=== PATIENT | male | born 1950 | race African-American/Black ===

== ENCOUNTER 2022-04-29 14:34 | Inpatient (IN) ==
[2022-04-29] MEDS ORDERED: SODIUM CHLORIDE 0.9% 1,000 ML IV STA (15:34)
[2022-04-29 15:45] LABS: Basophils % 0.6 % (0.0-0.8); Eosinophils % 0.4 % (0.00-10.9); Hematocrit 46.4 VOL% (42.0-52.0); Hemoglobin 14.7 GM/DL (14.0-18.0); Immature Granulocytes % 0.4 %; Immature Granulocytes Absolute 0.03 #; Lymphocytes # 2.6 10*3/uL (1.4-4.0); Lymphocytes % 37.3 % (21.2-54.2); Mean Corpuscular HGB Conc 31.7 GM/DL (32-36); Mean Corpuscular Volume 82.1 FL (87-102); Mean Platelet Volume 11.1 FL (9.6-12.0); Monocytes # 0.4 10*3/uL (0.11-0.8); Monocytes % 5.1 % (1.7-12.7); Neutrophils % 56.2 % (38.7-73.9); Platelet Count 236 T/CUMM (130-400); Red Blood Count 5.65 MC/CUMM (3.8-5.5); White Blood Count 6.9 T/CUMM (4-12)
[2022-04-29 15:53] LABS: PT Patient Result 10.6 SECS (10.1-12.1)
[2022-04-29 16:02] LABS: Albumin 2.9 G/DL (3.4-5.0); Bilirubin,Total 0.9 MG/DL (0.20-1.00); Calcium 9.1 MG/DL (8.5-10.1); Potassium 4.3 MMOL/L (3.5-5.1); Total Protein 6.7 G/DL (6.4-8.2)
[2022-04-29 18:41] LABS: Bilirubin,Urine Large mg/dL (Negative); Blood, Urine Negative (Negative); Glucose,Urine (UA) Negative (Negative); Ketones,Urine 40 mg/dL (Negative); Nitrite,Urine Negative (Negative); Protein,Urine 30 mg/dL (Negative); Urine Appearance Clear (Clear); Urine Color Yellow (Yellow); Urine Specific Gravity >= 1.030 (1.001-1.035); Urine Urobilinogen < 2.0 eU/dL (<2.0); Urine pH 5.5 (4.5-8.0)
[2022-04-29 18:50] LABS: Hyaline Casts,Urine 13 /LPF (0-3); Mucus,Urine Many /LPF (Occasional)
[2022-04-29 19:00] LABS: Barbiturates Screen,Urine Negative (Negative); Benzodiazepines Screen,Urine Negative (Negative); Cannabinoid Screen,Urine Negative (Negative); Opiate Screen,Urine Negative (Negative); Phencyclidine Screen,Urine Negative (Negative)
[2022-04-29] MEDS ORDERED: ONDANSETRON 4 MG/2 ML VIAL IV PRN (20:23)
[2022-04-29] MEDS ORDERED: ACETAMINOPHEN 325 MG TABLET PO PRN (20:23)
[2022-04-29] MEDS ORDERED: hydrALAZINE 20 MG/1 ML VIAL IV PRN (20:31)
[2022-04-29] MEDS: SODIUM CHLORIDE 0.9% 1,000 ML IV SCH (22:26)
[2022-04-29] MEDS: MIRTAZAPINE 15 MG TABLET PO SCH (22:26)
[2022-04-29] MEDS ORDERED: PNEUMOCOCCAL VACCINE (20 VALENT) 0.5 ML SYRINGE IM ONE (23:30)
[2022-04-29] MEDS ORDERED: PNEUMOCOCCAL VACCINE (13 VALENT) 0.5 ML SYRINGE IM ONE (23:46)
[2022-04-29] MEDS ORDERED: INFLUENZA VIRUS VACCINE 0.5 ML SYRINGE IM ONE (23:47)
[2022-04-30 05:52] LABS: Basophils % 0.5 % (0.0-0.8); Eosinophils % 0.5 % (0.00-10.9); Hematocrit 38.4 VOL% (42.0-52.0); Hemoglobin 12.4 GM/DL (14.0-18.0); Immature Granulocytes % 0.3 %; Immature Granulocytes Absolute 0.02 #; Lymphocytes # 2.8 10*3/uL (1.4-4.0); Lymphocytes % 48.1 % (21.2-54.2); Mean Corpuscular HGB Conc 32.3 GM/DL (32-36); Mean Corpuscular Volume 82.4 FL (87-102); Mean Platelet Volume 10.9 FL (9.6-12.0); Monocytes # 0.3 10*3/uL (0.11-0.8); Monocytes % 5.4 % (1.7-12.7); Neutrophils % 45.2 % (38.7-73.9); Platelet Count 151 T/CUMM (130-400); Red Blood Count 4.66 MC/CUMM (3.8-5.5); Red Cell Distribution Width 18.5 % (9.3-17.3); White Blood Count 5.7 T/CUMM (4-12)
[2022-04-30 06:24] LABS: Alanine Aminotransferase < 9 U/L (16-61); Albumin 2.3 G/DL (3.4-5.0); Alkaline Phosphatase 83 U/L (45-117); Aspartate Amino Transferase 16 U/L (0-37); Blood Urea Nitrogen 10 MG/DL (7-18); Calcium 8.3 MG/DL (8.5-10.1); Carbon Dioxide 22 MMOL/L (21-32); Chloride 105 MMOL/L (98-107); Cholesterol 94 MG/DL (50-200); Glucose 62 MG/DL (74-106); HDL Cholesterol 28 MG/DL (40-60); Osmolality,Calculated 271.7 MOS/KG (273-304); Potassium 3.3 MMOL/L (3.5-5.1); Risk Ratio 3.36; Sodium 138 MMOL/L (136-145); Total Protein 5.8 G/DL (6.4-8.2); Triglycerides 71 MG/DL (2-150); VLDL Cholesterol 14.2 MG/DL
[2022-04-30] MEDS ORDERED: POTASSIUM CHLORIDE 20 MEQ TABLET PO ONE (07:37)
[2022-04-30] MEDS ORDERED: CYPROHEPTADINE 4 MG TABLET PO SCH (09:00)
[2022-04-30] MEDS: DEXTROSE 5% 1,000 ML IV SCH (10:00)
[2022-04-30] MEDS: POTASSIUM BICARB EFFERVESCENT 20 MEQ TAB.EFF PO SCH ×2 (12:18→21:28)
[2022-04-30] MEDS: DONEPEZIL 5 MG TABLET PO SCH (12:18)
[2022-04-30] MEDS: PANTOPRAZOLE 40 MG TABLET PO SCH (12:18)
[2022-04-30] MEDS: CYPROHEPTADINE 4 MG TABLET PO SCH ×3 (12:19→21:28)
[2022-04-30] MEDS: POLYETHYLENE GLYCOL POWDER 17 GM PACK PO SCH (12:21)
[2022-04-30] MEDS: SODIUM CHLORIDE 0.9% 1,000 ML IV SCH (15:27)
[2022-04-30] MEDS: MIRTAZAPINE 15 MG TABLET PO SCH (21:28)
[2022-05-01] MEDS: DEXTROSE 5% 1,000 ML IV SCH (04:39)
[2022-05-01] MEDS: CYPROHEPTADINE 4 MG TABLET PO SCH ×3 (08:33→21:07)
[2022-05-01] MEDS: DONEPEZIL 5 MG TABLET PO SCH (08:33)
[2022-05-01] MEDS: POLYETHYLENE GLYCOL POWDER 17 GM PACK PO SCH (08:33)
[2022-05-01] MEDS: POTASSIUM BICARB EFFERVESCENT 20 MEQ TAB.EFF PO SCH ×2 (08:33→21:07)
[2022-05-01] MEDS: PANTOPRAZOLE 40 MG TABLET PO SCH (08:33)
[2022-05-01 13:14] LABS: Calcium 8.6 MG/DL (8.5-10.1); Osmolality,Calculated 279.3 MOS/KG (273-304)
[2022-05-01] MEDS: MIRTAZAPINE 15 MG TABLET PO SCH (21:07)
[2022-05-02 05:47] LABS: Basophils % 0.7 % (0.0-0.8); Hematocrit 38.6 VOL% (42.0-52.0); Hemoglobin 12.6 GM/DL (14.0-18.0); Immature Granulocytes % 0.2 %; Immature Granulocytes Absolute 0.01 #; Lymphocytes # 2.2 10*3/uL (1.4-4.0); Lymphocytes % 52.1 % (21.2-54.2); Mean Corpuscular HGB Conc 32.6 GM/DL (32-36); Mean Corpuscular Volume 81.3 FL (87-102); Mean Platelet Volume 10.6 FL (9.6-12.0); Monocytes # 0.3 10*3/uL (0.11-0.8); Monocytes % 6.6 % (1.7-12.7); Neutrophils % 40.4 % (38.7-73.9); Platelet Count 131 T/CUMM (130-400); Red Blood Count 4.75 MC/CUMM (3.8-5.5); Red Cell Distribution Width 18.6 % (9.3-17.3); White Blood Count 4.2 T/CUMM (4-12)
[2022-05-02 06:10] LABS: Calcium 8.9 MG/DL (8.5-10.1); Osmolality,Calculated 279.1 MOS/KG (273-304); Potassium 3.5 MMOL/L (3.5-5.1)
[2022-05-02] MEDS ORDERED: MAGNESIUM SULF RIDER 2 GM/50 ML PREMIX IV ONE (08:00)
[2022-05-02] MEDS: DONEPEZIL 5 MG TABLET PO SCH (08:41)
[2022-05-02] MEDS: POLYETHYLENE GLYCOL POWDER 17 GM PACK PO SCH (08:41)
[2022-05-02] MEDS: PANTOPRAZOLE 40 MG TABLET PO SCH (08:41)
[2022-05-02] MEDS: CYPROHEPTADINE 4 MG TABLET PO SCH ×3 (08:41→21:07)
[2022-05-02] MEDS: POTASSIUM BICARB EFFERVESCENT 20 MEQ TAB.EFF PO SCH ×2 (08:41→21:06)
[2022-05-02] MEDS ORDERED: SKIN HEALING OINT (AQUAPHOR) 50 GM TUBE TOP PRN (14:35)
[2022-05-02] MEDS: ZINC OXIDE 16% PASTE 57 GM TUBE TOP SCH ×2 (15:20→21:43)
[2022-05-02] MEDS: MIRTAZAPINE 15 MG TABLET PO SCH (21:06)
[2022-05-03 06:08] LABS: Calcium 8.4 MG/DL (8.5-10.1); Osmolality,Calculated 275.4 MOS/KG (273-304); Potassium 3.4 MMOL/L (3.5-5.1)
[2022-05-03] MEDS: POLYETHYLENE GLYCOL POWDER 17 GM PACK PO SCH (09:16)
[2022-05-03] MEDS: ZINC OXIDE 16% PASTE 57 GM TUBE TOP SCH (09:16)
[2022-05-03] MEDS: CYPROHEPTADINE 4 MG TABLET PO SCH ×3 (09:16→21:20)
[2022-05-03] MEDS: POTASSIUM BICARB EFFERVESCENT 20 MEQ TAB.EFF PO SCH ×2 (09:16→21:20)
[2022-05-03] MEDS: PANTOPRAZOLE 40 MG TABLET PO SCH (09:16)
[2022-05-03] MEDS: DONEPEZIL 5 MG TABLET PO SCH (09:16)
[2022-05-03] MEDS: MIRTAZAPINE 15 MG TABLET PO SCH (21:20)
[2022-05-04] MEDS: ZINC OXIDE 16% PASTE 57 GM TUBE TOP SCH ×2 (01:20→08:54)
[2022-05-04 05:38] LABS: Basophils % 0.6 % (0.0-0.8); Hematocrit 36.7 VOL% (42.0-52.0); Hemoglobin 11.7 GM/DL (14.0-18.0); Immature Granulocytes % 0.2 %; Immature Granulocytes Absolute 0.01 #; Lymphocytes % 58.3 % (21.2-54.2); Mean Corpuscular HGB Conc 31.9 GM/DL (32-36); Mean Corpuscular Volume 84.4 FL (87-102); Mean Platelet Volume 10.7 FL (9.6-12.0); Monocytes # 0.3 10*3/uL (0.11-0.8); Monocytes % 6.7 % (1.7-12.7); Neutrophils % 34.2 % (38.7-73.9); Platelet Count 134 T/CUMM (130-400); Red Blood Count 4.35 MC/CUMM (3.8-5.5); White Blood Count 5.1 T/CUMM (4-12)
[2022-05-04 05:59] LABS: Lymphocytes 54 % (20-55); Platelet Estimate Normal; Total Cells Counted 100
[2022-05-04 06:00] LABS: Hypochromia Slight; Microcytosis Slight
[2022-05-04 06:10] LABS: Folate 3.35 NG/ML (5.38-24.0); Vitamin B12 511 PG/ML (211-911)
[2022-05-04 06:31] LABS: Sedimentation Rate-Westergren 16 MM/HR (0-20)
[2022-05-04] MEDS: POTASSIUM BICARB EFFERVESCENT 20 MEQ TAB.EFF PO SCH (08:54)
[2022-05-04] MEDS: POLYETHYLENE GLYCOL POWDER 17 GM PACK PO SCH (08:54)
[2022-05-04] MEDS: CYPROHEPTADINE 4 MG TABLET PO SCH (08:54)
[2022-05-04] MEDS: DONEPEZIL 5 MG TABLET PO SCH (08:54)
[2022-05-04] MEDS: PANTOPRAZOLE 40 MG TABLET PO SCH (08:54)
[2022-05-04] MEDS ORDERED: FOLIC ACID 1 MG TABLET PO SCH (09:00)
[2022-05-04 11:35] VITALS: BP 122/53
[2022-05-06 10:40] LABS: Hemoglobin A1 (Alkaline) 97.2 % (96.5-98.5); Hemoglobin A2 (Alkaline) 2.8 % (1.5-3.5)
== END 2022-05-04 13:35 | disposition home health service (06) | DRG 884 ==
LOC: N.ED 14:34 → SUATTDRO 20:23 → N.EDINP 20:23 → N.3E 23:11
PROVIDERS: ADMIT Hospitalist; ATTEND Emergency Medicine